=== PATIENT | female | born 1980 | race American Indian/Alaskan Native ===

== ENCOUNTER 2016-09-27 12:04 | Observation (INO) | payer BC ==
[2016-09-27 12:16] VITALS: RESP 16; O2SAT 98; BMI 28.3
--- NOTE | 2016-09-27 13:52 | ED PDOC ---
HPI: General Adult Time Seen by Provider: 09/27/16 12:22 Chief Complaint (Nursing): Palpitations History Per: Patient Additional Complaint(s): Pt. states on Friday she was running to catch a bus and the following day she developed L groin pain. Reports developing a limp due to the pain. Pt. states on Friday she was seen at an [facility] where they performed and US of her leg which showed no "blood clot" and was subsequently prescribed Flexeril. Pt. states she began taking flexeril the same day and within an hour of taking the medication she developed palpitations which would resolved after a few minutes and then reappear 1 hour after she took the flexeril. Currently without any palpitations. Denies trauma, N/V/D, abdominal pain, pelvic pain, vaginal bleeding, numbness, tingling, calf pain, hormonal therapy, hx of DVT/PE, hemoptysis, recent prolonged limb immobilization. Past Medical History Reviewed: Historical Data, Nursing Documentation, Vital Signs Vital Signs: Last Vital Signs Temp 98.9 F 09/27/16 12:15 Pulse 95 H 09/27/16 12:15 Resp 16 09/27/16 12:15 BP 118/64 09/27/16 12:15 Pulse Ox 98 09/27/16 18:03 - Medical History Other PMH: Endometriosis - Surgical History Other surgeries: laparascopy - Family History Family History: States: No Known Family Hx - Home Medications Home Medications: Ambulatory Orders Medication Instructions Recorded Famotidine [Pepcid] 20 mg PO BID #30 tab 02/09/15 Ibuprofen [Motrin Tab] 800 mg PO TID PRN #30 tab 02/09/15 Naproxen [Naprosyn] 500 mg PO BID PRN #30 tab 09/27/16 - Allergies Allergies/Adverse Reactions: Allergies Allergy/AdvReac Type Severity Reaction Status Date / Time No Known Allergies Allergy Verified 02/09/15 16:53 Review of Systems ROS Statement: Except As Marked, All Systems Reviewed And Found Negative Physical Exam - Physical Exam Appears: Positive for: Well, Non-toxic, No Acute Distress Skin: Positive for: Normal Color, Warm. Negative for: Rash Eye Exam: Positive for: EOMI, Normal appearance, PERRL ENT: Positive for: Normal ENT Inspection. Negative for: Pharyngeal Erythema, Tonsillar Exudate, Tonsillar Swelling Neck: Positive for: Normal, Painless ROM Cardiovascular/Chest: Positive for: Regular Rate, Rhythm Respiratory: Positive for: CNT, Normal Breath Sounds Pulses-Dorsalis Pedis (L): 2+ Pulses-Dorsalis Pedis (R): 2+ Pulses-Femoral (L): 2+ Pulses-Femoral (R): 2+ Gastrointestinal/Abdominal: Positive for: Normal Exam, Soft. Negative for: Tenderness Back: Positive for: Normal Inspection. Negative for: L CVA Tenderness, R CVA Tenderness Extremity: Positive for: Other (L groin tenderness without masses). Negative for: Normal ROM (limited ROM to L hip secondary to pain), Pedal Edema, Calf Tenderness (b/l) Neurologic/Psych: Positive for: Alert, Oriented - Laboratory Results Result Diagrams: 09/27/16 14:04 09/27/16 14:04 - ECG O2 Sat by Pulse Oximetry: 98 - Radiology X-Ray: Interpreted by Me (L hip/pelvic, CXR) X-Ray Interpretation: No Acute Disease ED OBSERVATION Discharge: Yes Date of observation admission: 09/27/16 Time of observation admission: 13:27 - Observation admission statement Patient is being placed in observation because:: Palpitations, hip pain - Progress Note Progress Note: 09/27/16 13:27 Labs ordered. CXR, hip x-ray ordered. Toradol 15mg IV given. 09/27/16 15:27 D-Dimer elevated. CTA chest ordered. 09/27/16 18:01 CTA chest: No evidence of pulmonary embolism. No pulmonary infiltrate. Unremarkable. Pt. reports she is feeling much better. Crutches and crutch walking instructions provided. Disposition - Clinical Impression Clinical Impression: Groin injury, Palpitations - Patient ED Disposition Is Patient to be Admitted: No - Disposition Disposition: Routine/Home Disposition Time: 18:03 Condition: IMPROVED
[2016-09-27 14:10] LABS: BASO % 0.7 % (0.0-2.0); EOS # 0.1 K/uL (0.0-0.7); EOS % 1.1 % (0.0-4.0); HEMOGLOBIN 11.4 g/dL (12.0-16.0); LYMPH # 1.4 K/uL (1.0-4.3); LYMPH % 23.1 % (20.0-40.0); MEAN CORPUSCULAR HEMOGLOBIN 22.3 pg (27.0-31.0); MEAN PLATELET VOLUME 7.6 fl (7.2-11.7); MONO # 0.5 K/uL (0.0-0.8); MONO % 8.8 % (0.0-10.0); NEUT # 3.9 K/uL (1.8-7.0); NEUT % 66.3 % (50.0-75.0); NRBC % 0.1 % (0.0-0.0); RBC 5.13 Mil/uL (3.80-5.20); RED CELL DISTRIBUTION WIDTH 15.1 % (11.5-14.5); WHITE BLOOD COUNT 5.9 K/uL (4.8-10.8)
[2016-09-27 14:34] LABS: SQUAMOUS EPITHIAL 2 /hpf (0-5); URINE BACTERIA RARE (<OCC); URINE BILIRUBIN NEGATIVE (NEGATIVE); URINE BLOOD SMALL (NEGATIVE); URINE CLARITY SLIGHTY-CLOUDY (Clear); URINE COLOR YELLOW (YELLOW); URINE GLUCOSE (UA) NEG (Normal); URINE LEUKOCYTE ESTERASE NEG Leu/uL (Negative); URINE NITRATE NEGATIVE (NEGATIVE); URINE PROTEIN NEGATIVE (NEGATIVE); URINE UROBILINOGEN 0.2-1.0 mg/dL (0.2-1.0)
[2016-09-27 14:45] LABS: ALB/GLOB RATIO 1.3 (1.0-2.1); ALBUMIN 4.4 g/dL (3.5-5.0); ALT/SGPT 29 U/L (9-52); AST/SGOT 23 U/L (14-36); BLOOD UREA NITROGEN 10 mg/dl (7-17); CALCIUM 9.5 mg/dL (8.4-10.2); GFR AFRICAN-AMERICAN > 60; GFR NON-AFRICAN AMERICAN > 60
--- NOTE | 2016-09-27 15:14 | RAD ---
PROCEDURE: CHEST RADIOGRAPH, 1 VIEW HISTORY: palpitations COMPARISON: None available. FINDINGS: LUNGS: Clear. PLEURA: No pneumothorax or pleural fluid seen. CARDIOVASCULAR: Normal. OSSEOUS STRUCTURES: No significant abnormalities. VISUALIZED UPPER ABDOMEN: Normal. OTHER FINDINGS: None. IMPRESSION: No active disease.
--- NOTE | 2016-09-27 15:38 | RAD ---
PROCEDURE: Left Hip X-ray Radiographs. HISTORY: Pain. No history of recent/ related trauma provided COMPARISON: None. FINDINGS: BONES: Normal. No fracture. JOINTS: Normal. SOFT TISSUES: Normal. OTHER FINDINGS: None. IMPRESSION: No significant or acute findings to account for/ related to the clinical presentation.
[2016-09-27] MEDS ORDERED: Sodium Chloride 0.9% 50 ML IV ONE (16:22)
[2016-09-27] MEDS ORDERED: Iodixanol 320 MG/ML 100 ML BOTTLE IV ONE (16:22)
--- NOTE | 2016-09-27 17:47 | CT ---
PROCEDURE: CT Chest with contrast (Pulmonary Angiogram) HISTORY: palpitations, leg pain, elevated d-dimer COMPARISON: None available. TECHNIQUE: Axial computed tomography images were obtained of the chest in the pulmonary arterial phase of enhancement. Coronal and sagittal reformatted images were created and reviewed. Intravenous contrast dose: 80 mL Visipaque 320 Radiation dose: Total exam DLP = 317.84 mGy-cm. This CT exam was performed using one or more of the following dose reduction techniques: Automated exposure control, adjustment of the mA and/or kV according to patient size, and/or use of iterative reconstruction technique. FINDINGS: PULMONARY ARTERIES: Unremarkable. No pulmonary embolism. AORTA: No acute findings. No thoracic aortic aneurysm. LUNGS: Probable dependent atelectasis the posterior lower lobes. No acute infiltrate. PLEURAL SPACES: Unremarkable. No effusion or pneuomothorax. HEART: Unremarkable. No cardiomegaly. No significant pericardial effusion. LYMPH NODES: No lymphadenopathy. BONES, CHEST WALL: Unremarkable. No fracture or destructive lesion OTHER FINDINGS: Unremarkable. IMPRESSION: No evidence of pulmonary embolism. No pulmonary infiltrate. Unremarkable.
[2016-09-27 19:12] VITALS: BP 128/78; PULSE 78; TEMP 97.7
--- NOTE | 2016-09-28 12:03 | CARD ---
APPROVED REPORT EKG Measurement Heart [id number] <Conclusion> Normal sinus rhythm Possible Left atrial enlargement Borderline ECG
== END 2016-09-27 19:09 | disposition home or self-care (01) ==
LOC: H.ER 12:04 → H.EROBSV 13:27
PROVIDERS: ADMIT Emergency Medicine; ATTEND Emergency Medicine
DX: R00.2 Palpitations (principal); N80.9 Endometriosis, unspecified; S39.81XA Other specified injuries of abdomen, initial encounter; X58.XXXA Exposure to other specified factors, initial encounter; Z86.718 Personal history of other venous thrombosis and embolism
CPT/HCPCS: 71010; 71275; 73501; 80053; 81003; 81025; 84443; 85025; 85378; 93005; 96374; 99282; G0378; J1885; Q9967

== ENCOUNTER 2017-04-05 09:58 | Emergency (ER) | payer BC ==
[2017-04-05 09:59] VITALS: BMI 28.3
[2017-04-05 10:11] VITALS: RESP 20; O2SAT 98
[2017-04-05] MEDS ORDERED: Sodium Chloride 0.9% 1,000 ML IV STA (10:15)
[2017-04-05] MEDS ORDERED: Iodixanol 320 MG/ML 100 ML BOTTLE IV ONE (10:21)
[2017-04-05] MEDS ORDERED: Sodium Chloride 0.9% 50 ML IV ONE (10:22)
[2017-04-05 10:27] LABS: BASO % 0.4 % (0.0-2.0); EOS # 0.1 K/uL (0.0-0.7); EOS % 1.2 % (0.0-4.0); HEMOGLOBIN 11.2 g/dL (12.0-16.0); LYMPH # 1.6 K/uL (1.0-4.3); LYMPH % 18.6 % (20.0-40.0); MEAN CELL VOLUME 72.2 fl (81.0-99.0); MEAN CORPUSCULAR HEMOGLOBIN 22.4 pg (27.0-31.0); MEAN CORPUSCULAR HGB CONC 31.1 g/dL (33.0-37.0); MEAN PLATELET VOLUME 7.4 fl (7.2-11.7); MONO # 0.8 K/uL (0.0-0.8); MONO % 9.4 % (0.0-10.0); NEUT # 6.1 K/uL (1.8-7.0); NEUT % 70.4 % (50.0-75.0); NRBC % 0.1 % (0.0-0.0); RBC 4.98 Mil/uL (3.80-5.20); RED CELL DISTRIBUTION WIDTH 14.2 % (11.5-14.5); WHITE BLOOD COUNT 8.7 K/uL (4.8-10.8)
--- NOTE | 2017-04-05 10:31 | ED PDOC ---
HPI: Chest Pain Time Seen by Provider: 04/05/17 10:10 Chief Complaint (Nursing): Chest Pain Chief Complaint (Provider): Right sided chest pain, worse with inspiration History Per: Patient History/Exam Limitations: no limitations Onset/Duration Of Symptoms: Hrs Current Symptoms Are (Timing): Still Present Severity: Moderate Pain Scale Rating Of: 5 Quality: Sharp Exacerbating Factors: Deep Breathing Alleviating Factors: None Additional Complaint(s): 36 yo female with no medical problems, currently taking OCPs, presents with right sided chest pain which began last night. PT states it feels deep and does not feel muscular. PT states she took Motrin at home but it did not help last night. Pt denies new activities, patient denies cough. PT denies fever/chills. Past Medical History Reviewed: Historical Data, Nursing Documentation, Vital Signs Vital Signs: Last Vital Signs Temp 97.8 F 04/05/17 10:09 Pulse 92 H 04/05/17 10:09 Resp 20 04/05/17 10:09 BP 121/59 L 04/05/17 10:09 Pulse Ox 98 04/05/17 10:31 - Medical History PMH: No Chronic Diseases - Surgical History Surgical History: No Surg Hx - Family History Family History: States: Unknown Family Hx - Living Arrangements Living Arrangements: With Family - Social History Current smoker - smoking cessation education provided: No - Home Medications Home Medications: Ambulatory Orders Medication Instructions Recorded Famotidine [Pepcid] 20 mg PO BID #30 tab 02/09/15 Ibuprofen [Motrin Tab] 800 mg PO TID PRN #30 tab 02/09/15 Naproxen [Naprosyn] 500 mg PO BID PRN #30 tab 09/27/16 Albuterol 0.083% [Albuterol 0.083% 2.5 mg IH QID PRN #20 04/05/17 Inhal Anni (2.5 mg/3 ml) UD] Albuterol HFA [Ventolin HFA 90 1 puff IH BID PRN #1 unit 04/05/17 mcg/actuation (8 g)] Azithromycin 250 mg PO DAILY #6 tab 04/05/17 - Allergies Allergies/Adverse Reactions: Allergies Allergy/AdvReac Type Severity Reaction Status Date / Time No Known Allergies Allergy Verified 02/09/15 16:53 Review of Systems ROS Statement: Except As Marked, All Systems Reviewed And Found Negative Constitutional: Negative for: Fever, Chills Cardiovascular: Positive for: Chest Pain. Negative for: Palpitations Respiratory: Positive for: Pleuritic Pain. Negative for: Cough, Shortness of Breath, Hemoptysis Physical Exam - Reviewed Nursing Documentation Reviewed: Yes Vital Signs Reviewed: Yes - Physical Exam Appears: Positive for: Well, Non-toxic, No Acute Distress Head Exam: Positive for: ATRAUMATIC, NORMAL INSPECTION, NORMOCEPHALIC Skin: Positive for: Normal Color, Warm, DRY Eye Exam: Positive for: Normal appearance ENT: Positive for: Normal ENT Inspection Neck: Positive for: Normal, Painless ROM Cardiovascular/Chest: Positive for: Regular Rate, Rhythm Respiratory: Positive for: CNT, Normal Breath Sounds Gastrointestinal/Abdominal: Positive for: Normal Exam, Bowel Sounds, Soft Back: Positive for: Normal Inspection Extremity: Positive for: Normal ROM Neurologic/Psych: Positive for: Alert, Oriented - Laboratory Results Result Diagrams: 04/05/17 10:23 04/05/17 10:23 - ECG O2 Sat by Pulse Oximetry: 98 Medical Decision Making Medical Decision Making: PT reports improvement after albuterol and toradol IVP Disposition - Clinical Impression Clinical Impression: Community acquired pneumonia - Patient ED Disposition Is Patient to be Admitted: No Counseled Patient/Family Regarding: Diagnosis, Need For Followup, Rx Given - Disposition Disposition: Routine/Home Disposition Time: 15:25 Condition: GOOD Prescriptions: Albuterol 0.083% [Albuterol 0.083% Inhal Anni (2.5 mg/3 ml) UD] 2.5 mg IH QID PRN #20 PRN Reason: Shortness Of Breath Albuterol HFA [Ventolin HFA 90 mcg/actuation (8 g)] 1 puff IH BID PRN #1 unit PRN Reason: Wheezing Azithromycin 250 mg PO DAILY #6 tab Instructions: Community-Acquired Pneumonia, Adult (DC) Forms: [email or web address] [facility] ([place]ijani), [facility] School/Work Excuse
[2017-04-05 10:50] LABS: INR 0.9 (0.9-1.2); PARTIAL THROMBOPLASTIN TIME 30.3 Seconds (25.6-37.1); PROTHROMBIN TIME 10.3 Seconds (9.8-13.1)
[2017-04-05 10:59] LABS: ALB/GLOB RATIO 1.1 (1.0-2.1); ALT/SGPT 21 U/L (9-52); AST/SGOT 22 U/L (14-36); BLOOD UREA NITROGEN 8 mg/dl (7-17); GFR AFRICAN-AMERICAN > 60; GFR NON-AFRICAN AMERICAN > 60
--- NOTE | 2017-04-05 11:45 | CT ---
PROCEDURE: CT Chest with contrast (Pulmonary Angiogram) HISTORY: right sided pleuritic chest pain, on OCP COMPARISON: Comparison is made with the previous study dated 09/27/2016 TECHNIQUE: Axial computed tomography images were obtained of the chest in the pulmonary arterial phase of enhancement. Coronal and sagittal reformatted images were created and reviewed. Intravenous contrast dose: 85 cc of Visipaque Radiation dose: Total exam DLP = mGy-cm. This CT exam was performed using one or more of the following dose reduction techniques: Automated exposure control, adjustment of the mA and/or kV according to patient size, and/or use of iterative reconstruction technique. FINDINGS: PULMONARY ARTERIES: Unremarkable. No pulmonary embolism. AORTA: No acute findings. No thoracic aortic aneurysm. LUNGS: There are nonspecific ground-glass opacities associated with small nodular opacities at the lower lobe and lung bases more prominent on the right. PLEURAL SPACES: Unremarkable. No effusion or pneumothorax. HEART: The heart is prominent in size. No evidence of pericardial effusion. LYMPH NODES: No lymphadenopathy. BONES, CHEST WALL: Unremarkable. No fracture or destructive lesion OTHER FINDINGS: Unremarkable. IMPRESSION: No evidence of pulmonary embolism. Nonspecific bilateral lower lobe ground-glass opacities associated with small airspace opacities more prominent on the right. Differential consideration includes infectious process or aspiration.
[2017-04-05] MEDS ORDERED: Albuterol 0.083% Inhal Sol (2.5 mg/3 mL) UD INH STA (13:21)
[2017-04-05] MEDS ORDERED: cefTRIAXone (Rocephin) 1 gm Inj ONE (13:41)
[2017-04-05] MEDS ORDERED: Albuterol 0.083% Inhal Sol (2.5 mg/3 mL) UD ONE (13:42)
[2017-04-05 16:47] VITALS: BP 120/70; PULSE 74; TEMP 98.7
== END 2017-04-05 16:48 | disposition home or self-care (01) ==
LOC: H.ER 09:58
DX: J18.9 Pneumonia, unspecified organism (principal)
CPT/HCPCS: 71275; 80053; 81025; 85025; 85610; 85730; 94640; 96361; 96365; 96375; 99283; J0696; J1885; J7040; Q9967